=== PATIENT | female | born 1980 | race Caucasian/White ===

== ENCOUNTER 2022-10-03 10:22 | Emergency (ER) | payer OTHER ==
--- NOTE | 2022-10-03 12:15 | RAD REPORT ---
EXAM DESCRIPTION: US - Extremity Venous Uni Ltd - 10/03/2022 11:12 am CLINICAL HISTORY: pain, swelling Leg swelling and edema. COMPARISON: No comparisons FINDINGS: Right lower extremity venous system was interrogated with Doppler technique. Thrombus is s een in the mid and distal right femoral vein. Thrombus also noted in the right popliteal vein. IMPRESSION: Positive for significant right-sided DVT as detailed.
--- NOTE | 2022-10-03 12:57 | EDPHYS ---
Physician Documentation [facility] Name: Tai Sanders Age: 42 yrs Sex: Female : 1980 Arrival Date: 10/03/2022 Time: 10:25 Bed 2 Private MD: ED Physician Catarino Muir HPI: 10/03 10:39 This 42 yrs old Female presents to ER via Unassigned with complaints of Leg Pain. jmm 10:39 The patient presents with pain. Onset: The symptoms/episode began/occurred gradually, 1 jmm week(s) ago. Modifying factors: The symptoms are alleviated by nothing. the symptoms are aggravated by nothing. Associated signs and symptoms: Pertinent positives: calf tenderness, swelling, Pertinent negatives fever, numbness, vomiting, warmth, weakness. The patient has not experienced similar symptoms in the past. 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 - Social history:: Smoking status: Patient denies any tobacco usage or history of. ROS: 10:39 Constitutional: Negative for fever, chills, and weight loss, Cardiovascular: Negative jmm for chest pain, palpitations, and edema, Respiratory: Negative for shortness of breath, cough, wheezing, and pleuritic chest pain. 10:39 MS/extremity: Positive for swelling. 10:39 All other systems are negative. Exam: 10:39 Constitutional: This is a well developed, well nourished patient who is awake, alert, jmm and in no acute distress. Head/Face: atraumatic. Eyes: EOMI, no conjunctival erythema appreciated ENT: Moist Mucus Membranes Neck: Trachea midline, Supple Chest/axilla: Normal chest wall appearance and motion. Cardiovascular: Regular rate and rhythm. No edema appreciated Respiratory: Normal respirations, no respiratory distress appreciated Abdomen/GI: Non distended Back: Normal ROM Skin: General appearance color normal 10:39 Musculoskeletal/extremity: mild swelling noted to the right calf, no erythema or warmth appreciated, compartments are soft, full dorsalis pedis pulse, nvi. 10:39 Skin: Appearance: Color: normal in color. 10:39 Neuro: Orientation: is normal, Mentation: is normal, Memory: is normal. 10:39 Psych: Behavior/mood is pleasant, cooperative. Vital Signs: 11:21 BP 133 / 89; Pulse 70; Resp 17; Temp 98.1; Pulse Ox 100% on R/A; Weight 120.66 kg; jl7 Height 5 ft. 10 in. (177.80 cm); Pain 6/10; 13:15 BP 110 / 66; Pulse 73; Resp 16; Pulse Ox 100% on R/A; db 11:21 Body Mass Index 38.17 (120.66 kg, 177.80 cm) jl7 MDM: 10:39 Patient medically screened. jmm 12:55 Data reviewed: vital signs, nurses notes. Counseling: I had a detailed discussion with [facility] the patient and/or guardian regarding: the historical points, exam findings, and any diagnostic results supporting the discharge/admit diagnosis, radiology results, the need for outpatient follow up, to return to the emergency department if symptoms worsen or persist or if there are any questions or concerns that arise at home. ED course: Patient is alert and non toxic in appearance in the ED. No signs of resp distress. Patient has no chest pain. Patient given strict return precautions. Patient understood and agrees with the plan of care. . 10/03 10:39 Order name: US Extremity Venous Unilateral Ltd; Complete Time: 12:25 [facility] Administered Medications: No medications were administered Disposition: 14:07 Co-signature as Attending Physician, Catarino Muir MD. rn Disposition Summary: 10/03/22 12:56 Discharge Ordered Location: Home [facility] Condition: Stable [facility] Diagnosis - Acute embolism and thrombosis of unspecified deep veins of right lower extremity [facility] Followup: [facility] - With: Luis Felipe Olsen MD - When: 2 - 3 days - Reason: Recheck today's complaints, Continuance of care, Re-evaluation by your physician Discharge Instructions: - Discharge Summary Sheet [facility] - Deep Vein Thrombosis [facility] Forms: - Medication Reconciliation Form [facility] - Thank You Letter [facility] - Antibiotic Education [facility] - Prescription Opioid Use [facility] Prescriptions: - Eliquis DVT-PE Treat 30D Start 5 mg (74 tabs) Oral tablets,dose pack - take 2 tablet by ORAL route 2 times per day Take as directed; 74 tablet; [facility] Refills: 0, Product Selection Permitted - Zanaflex 4 mg Oral Tablet - take 1 tablet by ORAL route every 8 hours As needed; 20 tablet; Refills: 0, beckie Product Selection Permitted Signatures: Dispatcher [employer] Ashwin Hernandez PA PA jmm Nieto, Roman, MD MD rn Leal, Jahala, RN RN jl7 Corrections: (The following items were deleted from the chart) 11:22 11:22 Allergies: No Known Allergies; megan jl7
--- NOTE | 2022-10-03 12:57 | ER ---
Nurse's Notes [facility] Name: Tai Sanders Age: 42 yrs Sex: Female : 1980 Arrival Date: 10/03/2022 Time: 10:25 Bed 2 Private MD: Diagnosis: Acute embolism and thrombosis of unspecified deep veins of right lower extremity Presentation: 10/03 11:21 Chief complaint: Patient states: Right leg pain and swelling since Sunday. Coronavirus jl7 screen: At this time, the client does not indicate any symptoms associated with coronavirus-19. Ebola Screen: No symptoms or risks identified at this time. Initial Sepsis Screen: Does the patient meet any 2 criteria? No. Patient's initial sepsis screen is negative. Does the patient have a suspected source of infection? No. Patient's initial sepsis screen is negative. Risk Assessment: Do you want to hurt yourself or someone else? Patient reports no desire to harm self or others. Onset of symptoms was September 29, 2022. 11:21 Method Of Arrival: Ambulatory [facility] 11:21 Acuity: [place]RI[place] 3 jl7 Triage Assessment: 11:22 General: Appears in no apparent distress. uncomfortable, Behavior is calm, cooperative, jl7 appropriate for age. Pain: Complains of pain in right leg Pain currently is 6 out of 10 on a pain scale. 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 - Social history:: Smoking status: Patient denies any tobacco usage or history of. Screenin:15 Abuse screen: Denies threats or abuse. Denies injuries from another. Nutritional db screening: No deficits noted. Tuberculosis screening: No symptoms or risk factors identified. Fall Risk None identified. No fall in past 12 months (0 pts). No secondary diagnosis (0 pts). No IV (0 pts). Ambulatory Aid- None/Bed Rest/Nurse Assist (0 pts). Gait- Normal/Bed Rest/Wheelchair (0 pts) Mental Status- Oriented to own ability (0 pts). Total Ng Fall Scale indicates No Risk (0-24 pts). Assessment: 13:15 Reassessment: Patient appears in no apparent distress at this time. Patient is alert, db oriented x 3, equal unlabored respirations, skin warm/dry/pink. right lower extremity pain, cramping. General: Appears in no apparent distress. Behavior is calm, cooperative, appropriate for age, quiet. Pain: Complains of pain in right leg. Neuro: No deficits noted. Level of Consciousness is awake, alert, obeys commands, Oriented to person, place, time, situation, Appropriate for age Speech is normal, Facial symmetry appears normal. Cardiovascular: No deficits noted. Respiratory: No deficits noted. Airway is patent Respiratory effort is even, unlabored, Respiratory pattern is regular, symmetrical. GI: No deficits noted. No signs and/or symptoms were reported involving the gastrointestinal system. : No deficits noted. No signs and/or symptoms were reported regarding the genitourinary system. EENT: No deficits noted. No signs and/or symptoms were reported regarding the EENT system. Derm: No deficits noted. No signs and/or symptoms reported regarding the dermatologic system. Musculoskeletal: No deficits noted. No signs and/or symptoms reported regarding the musculoskeletal system. Vital Signs: 11:21 BP 133 / 89; Pulse 70; Resp 17; Temp 98.1; Pulse Ox 100% on R/A; Weight 120.66 kg; jl7 Height 5 ft. 10 in. (177.80 cm); Pain 6/10; 13:15 BP 110 / 66; Pulse 73; Resp 16; Pulse Ox 100% on R/A; db 11:21 Body Mass Index 38.17 (120.66 kg, 177.80 cm) jl7 ED Course: 10:25 Patient arrived in ED. rg4 10:26 Ashwin Wright PA is PHCP. jmm 10:26 Catarino Muir MD is Attending Physician. jmm 11:09 US Extremity Venous Unilateral Ltd In Process Unspecified. EDMS 11:22 Triage completed. jl7 11:22 Arm band placed on right wrist. jl7 12:56 Luis Felipe Olsen MD is Referral Physician. jmm 13:13 Keila Jean-Baptiste, VENANCIO is Primary Nurse. db 13:15 Patient has correct armband on for positive identification. Bed in low position. Call db light in reach. Side rails up X 1. 13:15 No provider procedures requiring assistance completed. Patient did not have IV access db during this emergency room visit. Administered Medications: No medications were administered Medication: 13:15 VIS not applicable for this client. db Outcome: 12:56 Discharge ordered by . guille 13:15 Discharged to home ambulatory, with family. db 13:15 Condition: stable 13:15 Discharge instructions given to patient, family, Instructed on discharge instructions, follow up and referral plans. Demonstrated understanding of instructions, Prescriptions given X 2. 13:25 Patient left the ED. db Signatures: Dispatcher [employer] EDMS Ashwin Wright PA PA jmm Garcia, Rubi rg4 Paco Richard, RN RN Keila Spears RN RN db Corrections: (The following items were deleted from the chart) 11:22 11:22 Allergies: No Known Allergies; megan guzman
[2022-10-03 13:31] VITALS: TEMP 98.1; O2SAT 100
[2022-10-03 13:32] VITALS: BP 110/66
== END 2022-10-03 13:25 | disposition home or self-care (01) ==
LOC: ER 10:22
DX: I82.401 Acute embolism and thrombosis of unspecified deep veins of right lower extremity (principal); Z88.1 Allergy status to other antibiotic agents; Z91.041 Radiographic dye allergy status
CPT/HCPCS: 93971; 99283